=== PATIENT | female | born 1970 ===

== ENCOUNTER 2016-05-23 11:03 | Day surgery (SDC) | payer BC, OTHER ==
[2015-02-17 21:34] VITALS: BMI 27.1
[2016-05-23] MEDS ORDERED: Propofol 10 mg/ml Inj (20 ML) ONE (13:41)
[2016-05-23] MEDS ORDERED: Lidocaine 2% Inj (20ml) ONE (13:44)
[2016-05-23] MEDS ORDERED: Lactated Ringer's 1,000 ML IV SCH (14:00)
[2016-05-23 14:08] VITALS: O2SAT 99
[2016-05-23 15:02] VITALS: BP 121/80; PULSE 70; RESP 18; TEMP 97.8
== END 2016-05-23 15:13 | disposition home or self-care (01) ==
LOC: ENDO 11:03
PROVIDERS: ATTEND Internal Medicine
DX: K29.50 Unspecified chronic gastritis without bleeding (principal); Z86.19 Personal history of other infectious and parasitic diseases; K80.20 Calculus of gallbladder without cholecystitis without obstruction; K76.89 Other specified diseases of liver; E55.9 Vitamin D deficiency, unspecified
CPT/HCPCS: 43239; 84703; 88305; 88312; 88342; J2704; J7040; J7120